=== PATIENT | female | born 1980 | race Caucasian/White ===

== ENCOUNTER 2020-06-10 14:46 | Emergency (ER) | payer OTHER ==
[~2020-06-10] VITALS: Ht 167.7 cm; Wt 71.6 kg
[2020-06-10] MEDS ORDERED: fentaNYL INJ 100 MCG/2 ML AMP IVP STA (15:09)
--- NOTE | 2020-06-10 15:14 | ED GI ---
General Chief Complaint: Abdominal/GI Problems Stated Complaint: EPIGASTRIC PAIN Source of Information: Patient Exam Limitations: No Limitations (MINNA ARVIZU,) History of Present Illness Date Seen by Provider: Jun 10, 2020 Time Seen by Provider: 15:05 Initial Comments Ms. Mckeon is a 40-year-old female who presented to the ED following a tubal ligation today. She states she is having severe RUQ pain, especially with inspiration. She rates it a 10/10 on the pain scale and took a hydrocodone prescribed after the procedure without resolution of symptoms. She denies fevers/chills, nausea, vomiting, chest pain. She also states she is having vaginal bleeding with clotting. Timing/Duration: 4-6 Hours Severity/Quality: Severe Location: RUQ Modifying Factors: Worsens With Breathing, Worsens With Palpation Associated Symptoms: No Chest Pain, No Fever/Chills, No Nausea/Vomiting; Shortness of Air (MINNA ARVIZU,) Timing/Duration: 4-6 Hours Severity/Quality: Severe, Aching Location: RUQ Modifying Factors: Worsens With Breathing, Worsens With Movement, Worsens With Palpation Associated Symptoms: No Chest Pain, No Fever/Chills, No Nausea/Vomiting, No Weakness (CHIOMA LERMA MD) Allergies and Home Medications Allergies Coded Allergies: sulfamethoxazole (Verified Allergy, Unknown, 06/10/20) trimethoprim (Verified Allergy, Unknown, 06/10/20) Patient Home Medication List Home Medication List Reviewed: Yes (MINNA ARVIZU,) Home Medication List Reviewed: Yes (CHIOMA LERMA MD) Review of Systems Review of Systems Constitutional: No chills, No fever Respiratory: Denies Cough; Shortness of Air Cardiovascular: Denies Chest Pain Gastrointestinal: Denies Abdominal Pain, Denies Nausea, Denies Vomiting Genitourinary: Denies Burning, Denies Discharge Musculoskeletal: no symptoms reported Skin: no symptoms reported Psychiatric/Neurological: No Symptoms Reported Endocrine: No Symptoms Reported Hematologic/Lymphatic: No Symptoms Reported (MINNA ARVIZU,) All Other Systems Reviewed Negative Unless Noted: Yes (CHIOMA LERMA MD) Past Tfhpzbi-Tbwocb-Odcodv Hx Past Med/Social Hx: Reviewed Nursing Past Med/Soc Hx (CHIOMA LERMA MD) Patient Social History Alcohol Use: Rarely Uses Smoking Status: Current Everyday Smoker Substance type: Marijuana (MINNA ARVIZU,) Past Medical History Surgeries: Yes Tubal Ligation Respiratory: No Cardiac: No Neurological: No Genitourinary: No Gastrointestinal: No Musculoskeletal: No Endocrine: No HEENT: No Cancer: No Psychosocial: No Integumentary: No (MINNA ARVIZU,) Family Medical History Reviewed Nursing Family Hx (MINNA ARVIZU,) Reviewed Nursing Family Hx (CHIOMA LERMA MD) No Pertinent Family Hx (MINNA ARVIZU) Physical Exam Vital Signs Vital Signs - First Documented 06/10/20 15:09 Temp 37.7 Pulse 113 Resp 16 B/P (MAP) 113/72 (86) Pulse Ox 96 O2 Delivery Room Air (CHIOMA LERMA MD) Vital Signs Capillary Refill : (MINNA ARVIZU,) Height/Weight/BMI Height: '" Weight: lbs. oz. kg; BMI Method: General Appearance: WD/WN, mild distress HEENT: PERRL/EOMI Neck: supple, normal inspection Respiratory: lungs clear, normal breath sounds Cardiovascular: regular rate, rhythm, no murmur Gastrointestinal: normal bowel sounds, soft, guarding, tenderness (RUQ tenderness to palpation) Extremities: no calf tenderness, pedal edema Neurologic/Psychiatric: alert, oriented x 3 Skin: normal color, warm/dry (MINNA ARVIZU,) General Appearance: WD/WN, mild distress HEENT: PERRL/EOMI, pharynx normal Neck: supple, normal inspection Respiratory: lungs clear, normal breath sounds Cardiovascular: regular rate, rhythm, no murmur Gastrointestinal: No guarding, No rebound; tenderness (RUQ tenderness to palpation) Extremities: non-tender, normal inspection, no calf tenderness, normal capillary refill Back: normal inspection, no CVA tenderness, no vertebral tenderness Neurologic/Psychiatric: alert, oriented x 3 Skin: normal color, warm/dry (CHIOMA LERMA MD) Progress/Results/Core Measures Results/Orders Lab Results Laboratory Tests Test 06/10/20 15:35 Range/Units White Blood Count 14.8 H 4.3-11.0 10^3/uL Red Blood Count 4.01 L 4.35-5.85 10^6/uL Hemoglobin 13.4 11.5-16.0 G/DL Hematocrit 39 35-52 % Mean Corpuscular Volume 97 80-99 FL Mean Corpuscular Hemoglobin 33 25-34 PG Mean Corpuscular Hemoglobin Concent 35 32-36 G/DL Red Cell Distribution Width 13.4 10.0-14.5 % Platelet Count 297 130-400 10^3/uL Mean Platelet Volume 9.1 7.4-10.4 FL Immature Granulocyte % (Auto) 0 % Neutrophils (%) (Auto) 94 H 42-75 % Lymphocytes (%) (Auto) 5 L 12-44 % Monocytes (%) (Auto) 1 0-12 % Eosinophils (%) (Auto) 0 0-10 % Basophils (%) (Auto) 0 0-10 % Neutrophils # (Auto) 14.0 H 1.8-7.8 X 10^3 Lymphocytes # (Auto) 0.7 L 1.0-4.0 X 10^3 Monocytes # (Auto) 0.1 0.0-1.0 X 10^3 Eosinophils # (Auto) 0.0 0.0-0.3 10^3/uL Basophils # (Auto) 0.0 0.0-0.1 10^3/uL Immature Granulocyte # (Auto) 0.0 0.0-0.1 10^3/uL Sodium Level 137 135-145 MMOL/L Potassium Level 4.2 3.6-5.0 MMOL/L Chloride Level 104 98-107 MMOL/L Carbon Dioxide Level 22 21-32 MMOL/L Anion Gap 11 5-14 MMOL/L Blood Urea Nitrogen 12 7-18 MG/DL Creatinine 0.75 0.60-1.30 MG/DL Estimat Glomerular Filtration Rate > 60 BUN/Creatinine Ratio 16 Glucose Level 125 H 70-105 MG/DL Calcium Level 8.9 8.5-10.1 MG/DL Corrected Calcium 8.8 8.5-10.1 MG/DL Total Bilirubin 0.3 0.1-1.0 MG/DL Aspartate Amino Transf (AST/SGOT) 13 5-34 U/L Alanine Aminotransferase (ALT/SGPT) 17 0-55 U/L Alkaline Phosphatase 55 40-136 U/L Total Protein 6.7 6.4-8.2 GM/DL Albumin 4.1 3.2-4.5 GM/DL (CHIOMA LERMA MD) My Orders Orders - HCIOMA LERMA MD Ct Abdomen/Pelvis W (06/10/20 15:09) Cbc With Automated Diff (06/10/20 15:09) Comprehensive Metabolic Panel (06/10/20 15:09) Fentanyl Inj (Sublimaze Injection) (06/10/20 15:09) Ed Iv/Invasive Line Start (06/10/20 15:09) Ns Iv 1000 Ml (Sodium Chloride 0.9%) (06/10/20 15:15) Iohexol Injection (Omnipaque 350 Mg/Ml 1 (06/10/20 15:15) Received Contrast (Hold Metformin- Contr (06/10/20 15:15) Sodium Chloride Flush (Catheter Flush Sy (06/10/20 15:15) Ns (Ivpb) (Sodium Chloride 0.9% Ivpb Bag (06/10/20 15:15) Manual Differential (06/10/20 15:35) (CHIOMA LERMA MD) Medications Given in ED Current Medications Medications Dose Ordered Sig/Kami Route Start Time Stop Time Status Last Admin Dose Admin Iohexol 100 ml ONCE ONCE IV 06/10/20 15:15 06/10/20 15:16 DC 06/10/20 15:45 100 ML Sodium Chloride 10 ml NEEDED PRN IV 06/10/20 15:15 06/10/20 15:45 10 ML Sodium Chloride 100 ml ONCE ONCE IV 06/10/20 15:15 06/10/20 15:16 DC 06/10/20 15:45 100 ML Sodium Chloride 1,000 ml @ 0 mls/hr Q0M ONCE IV 06/10/20 15:15 06/10/20 15:16 DC 06/10/20 15:50 1,000 MLS/HR (CHIOMA LERMA MD) Vital Signs/I&O 06/10/20 15:09 Temp 37.7 Pulse 113 Resp 16 B/P (MAP) 113/72 (86) Pulse Ox 96 O2 Delivery Room Air (CHIOMA LERMA MD) Progress Progress Note : Time: 15:14 Progress Note Discussed case with Dr. Pichardo OBALMAN. Will order pain control, CT abd/pelvis, NS. Will investigate further pending studies. (MINNA ARVIZU,) Progress Note : Progress Note I have seen and evaluated the patient and agree with above except as indicated. I have directed the plan of care. I did discuss the case with Dr. Pichardo at 1507. Plan is for CT and basic labs. We will give IV fluid and fentanyl 50 mcg IV. Monitor patient. 1626: CT is without acute significant findings. IUD is in place inside the uterus. I did discuss the results with the patient and she is actually doing much better currently. Discharged home with return precautions. Patient verbalized understanding of instructions and agreement with plan. Patient will follow up with Dr. Pichardo next as scheduled. (CHIOMA LERMA MD) Diagnostic Imaging Diagonstic Imaging: CT Plain Films/CT/US/NM/MRI: abdomen, pelvis Comments NAME: LEANDER MCKEON [facility] REC#: [id number] PT STATUS: REG ER : [id number] PHYSICIAN: CHIOMA LERMA MD ADMIT DATE: 06/10/20/ER FS Draft Date of Exam:06/10/20 CT ABDOMEN/PELVIS W PROCEDURE: CT abdomen and pelvis with contrast. TECHNIQUE: Multiple contiguous axial images were obtained through the abdomen and pelvis after administration of intravenous contrast. Auto Exposure Controls were utilized during the CT exam to meet ALARA standards for radiation dose reduction. All CT scans use one or more of the following dose optimizing techniques: automated exposure control, MA and/or KvP adjustment based on patient size and exam type or iterative reconstruction. INDICATION: Right upper quadrant and back pain status post tubal ligation. Patient is same day surgery. There is a small volume of pelvic free fluid in the cul-de-sac not unexpected in a patient of this age and given the recent surgery there is an IUD device present. The uterus appeared unremarkable. There is a right adnexal simple appearing cyst measuring 1.9 cm likely a physiologic follicle. The left adnexa are normal. The air-containing appendix is visualized and normal. There is no appendicitis. There is a trace of free air present as an expected postoperative finding. There is no vascular contrast extravasation. There is no hydroureteronephrosis. Liver, spleen, adrenals and pancreas are normal. The gallbladder is negative. No bile duct dilatation. The kidneys appeared normal. The adrenals are negative. The aortoiliac and mesenteric vessels are patent and nonaneurysmal. The urinary bladder appeared unremarkable. The osseous structures of the abdomen and pelvis appeared unremarkable. Patient has very mild dependent bibasilar atelectasis. IMPRESSION: 1. There is a small volume pelvic free fluid cul-de-sac within normal postoperative and age limits. 2. Simple appearing likely physiologic right ovarian cyst with an IUD device in place. 3. Normal appendix is visualized. The urinary tracts are unobstructed and normal. Small amount of intraperitoneal air as an expected postsurgical finding. No evidence for significant hemorrhage, abscess or contrast extravasation. No bowel, biliary or urinary tract obstruction. Dictated on workstation # [id number] Dict: 06/10/20 1606 Trans: 06/10/20 1616 [facility] [id number] Interpreted by: LOBO OSORIO Electronically signed by: Reviewed: Reviewed by Me (MINNA ARVIZU,) Departure Impression Primary Impression: Postoperative pain Disposition: HOME, SELF-CARE Condition: Improved Departure-Patient Inst. Decision time for Depature: 16:33 (CHIOMA LERMA MD) Referrals: OK BOLES APRN (PCP) Primary Care Physician [facility] (Family) Primary Care Physician Patient Instructions: Postoperative Pain (DC), Severe Abdominal Pain, Adult (DC) Add. Discharge Instructions: All discharge instructions reviewed with patient and/or family. Voiced understanding. Take medications as directed. Follow-up with Dr. Pichardo next as scheduled. Because you are taking the narcotic, you should initiate stool softeners or [id number] MiraLAX or generic, 1 capful once or twice daily as needed to maintain normal stool habits. You may increase or decrease the dose to achieve normal results. Return for worse pain, fever, vomiting, weakness, breathing problems or other concerns as needed. Drink plenty of fluids and get plenty of rest. Try to move about when you can to reduce pain. . Copy Copies To 1: SEUN PICHARDO LAUREN, Jun 10, 2020 15:14 CHIOMA LERMA MD Jun 10, 2020 16:32
[2020-06-10] MEDS ORDERED: CATHETER FLUSH 10 ML SYR IV PRN (15:15)
[2020-06-10] MEDS ORDERED: NS 100 ML (IVPB) BAG IV ONE (15:15)
[2020-06-10] MEDS ORDERED: IOHEXOL 350 MG/ML 100 ML (OMNIPAQUE 350) VIAL IV ONE (15:15)
[2020-06-10] MEDS ORDERED: HOLD METFORMIN - RECEIVED CONTRAST 20 ML VIAL IV SCH (15:15)
[2020-06-10] MEDS ORDERED: NS IV 1000 ML 1,000 ML IV ONE (15:15)
[2020-06-10 15:43] LABS: BASOPHILS % (AUTO) 0 % (0-10); EOSINOPHILS % (AUTO) 0 % (0-10); HEMATOCRIT 39 % (35-52); HEMOGLOBIN 13.4 G/DL (11.5-16.0); LYMPHOCYTES # (AUTO) 0.7 X 10^3 (1.0-4.0); LYMPHOCYTES % (AUTO) 5 % (12-44); MEAN CORPUSCULAR HEMOGLOBIN 33 PG (25-34); MEAN CORPUSCULAR HGB CONC 35 G/DL (32-36); MEAN CORPUSCULAR VOLUME 97 FL (80-99); MEAN PLATELET VOLUME 9.1 FL (7.4-10.4); MONOCYTES # (AUTO) 0.1 X 10^3 (0.0-1.0); MONOCYTES % (AUTO) 1 % (0-12); NEUTROPHILS % (AUTO) 94 % (42-75); PLATELET COUNT 297 10^3/uL (130-400); WHITE BLOOD COUNT 14.8 10^3/uL (4.3-11.0)
[2020-06-10 16:17] LABS: ALANINE AMINOTRANSFERASE 17 U/L (0-55); ALBUMIN 4.1 GM/DL (3.2-4.5); ALKALINE PHOSPHATASE 55 U/L (40-136); BILIRUBIN,TOTAL 0.3 MG/DL (0.1-1.0); BUN/CREATININE RATIO 16; CALCIUM 8.9 MG/DL (8.5-10.1); CARBON DIOXIDE 22 MMOL/L (21-32); CHLORIDE 104 MMOL/L (98-107); CREATININE SERUM 0.75 MG/DL (0.60-1.30); GFR ESTIMATED > 60; GLUCOSE 125 MG/DL (70-105); POTASSIUM 4.2 MMOL/L (3.6-5.0); SODIUM 137 MMOL/L (135-145); TOTAL PROTEIN 6.7 GM/DL (6.4-8.2)
--- NOTE | 2020-06-10 16:17 | Diagnostic Imaging Report ---
PROCEDURE: CT abdomen and pelvis with contrast. TECHNIQUE: Multiple contiguous axial images were obtained through the abdomen and pelvis after administration of intravenous contrast. Auto Exposure Controls were utilized during the CT exam to meet ALARA standards for radiation dose reduction. All CT scans use one or more of the following dose optimizing techniques: automated exposure control, MA and/or KvP adjustment based on patient size and exam type or iterative reconstruction. INDICATION: Right upper quadrant and back pain status post tubal ligation. Patient is same day surgery. There is a small volume of pelvic free fluid in the cul-de-sac not unexpected in a patient of this age and given the recent surgery there is an IUD device present. The uterus appeared unremarkable. There is a right adnexal simple appearing cyst measuring 1.9 cm likely a physiologic follicle. The left adnexa are normal. The air-containing appendix is visualized and normal. There is no appendicitis. There is a trace of free air present as an expected postoperative finding. There is no vascular contrast extravasation. There is no hydroureteronephrosis. Liver, spleen, adrenals and pancreas are normal. The gallbladder is negative. No bile duct dilatation. The kidneys appeared normal. The adrenals are negative. The aortoiliac and mesenteric vessels are patent and nonaneurysmal. The urinary bladder appeared unremarkable. The osseous structures of the abdomen and pelvis appeared unremarkable. Patient has very mild dependent bibasilar atelectasis. IMPRESSION: 1. There is a small volume pelvic free fluid cul-de-sac within normal postoperative and age limits. 2. Simple appearing likely physiologic right ovarian cyst with an IUD device in place. 3. Normal appendix is visualized. The urinary tracts are unobstructed and normal. Small amount of intraperitoneal air as an expected postsurgical finding. No evidence for significant hemorrhage, abscess or contrast extravasation. No bowel, biliary or urinary tract obstruction. Dictated by: Dictated on workstation # [id number]
[2020-06-10 16:46] LABS: LYMPHOCYTES % (MANUAL) 5 %; MONOCYTES % (MANUAL) 2 %; NEUTROPHILS % (MANUAL) 93 %
[2020-06-10 17:15] VITALS: BP 132/75
== END 2020-06-10 17:15 | disposition home or self-care (01) ==
LOC: EDUNIT# 14:46 → ER FS 14:48
DX: G89.18 Other acute postprocedural pain (principal); R10.13 Epigastric pain; R10.11 Right upper quadrant pain; N83.291 Other ovarian cyst, right side; F17.200 Nicotine dependence, unspecified, uncomplicated; Z98.51 Tubal ligation status; Z97.5 Presence of (intrauterine) contraceptive device; Z88.1 Allergy status to other antibiotic agents; Z88.2 Allergy status to sulfonamides
CPT/HCPCS: 36415; 74177; 80053; 85007; 85027